=== PATIENT | male | born 1995 | race Caucasian/White ===

== ENCOUNTER 2020-06-20 19:40 | Emergency (ER) | payer BC, SELFPAY ==
[2020-06-20 19:42] VITALS: BP 153/76; PULSE 105; RESP 18; TEMP 36.4; O2SAT 100
--- NOTE | 2020-06-20 19:48 | ED.UPPEXIN ---
HPI - Extremity Injury (Upper) General Chief Complaint: Extremity Injury, Upper Stated Complaint: right hand injury Time Seen by Provider: 06/20/20 19:48 History of Present Illness HPI narrative: 24 yo male presents complaining of hand injury. 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 She sustained 2 laceration to the hand. He has mild pain. Full ROm. No numbness or weakness. Concerned due to difficulty controlling bleeding. Unsure of tetanus status. Related Data Allergies Allergy/AdvReac Type Severity Reaction Status Date / Time No Known Allergies Allergy Unknown Unverified 10/29/18 19:16 Review of Systems Review of Systems: All systems reviewed & are unremarkable except as noted in HPI and below Constitutional: Constitutional: Reports no additional constitutional complaints Cardiovascular: Cardiovascular: Reports no additional cardiovascular complaints Respiratory: Respiratory: Reports no additional respiratory complaints Neurologic: Reports as per HPI [facility] Family History Family History (Updated 01/03/10 @ 08:49 by DOCTOR UNKNOWN) Other Family history of alcoholism Family history of arthritis Hypertension Social History Social History Alcohol intake: never Exam Const: General: healthy appearing, no acute distress and alert Nutritional Appearance: well nourished Orientation/consciousness: patient oriented x3 HENMT: Head: normal to inspection Neck: Neck: normal visual inspection Resp: Effort & Inspection: normal respiratory effort Cardio: Other: 2 + right radial, brisk cap refill Skin: General skin exam: normal color Other: parallel 1.5 cm and 2 cm lacerations to posterior lateral right hand proximal to second MCP Neuro: General: patient oriented x3, moves all extremities and no focal motor deficits Speech: normal speech Extrem: Other: full ROM Course Vital Signs Vital signs: Vital Signs Temperature 36.4 C 06/20/20 19:42 Pulse Rate 105 H 06/20/20 19:42 Respiratory Rate 18 06/20/20 19:42 Blood Pressure 153/76 H 06/20/20 19:42 Pulse Oximetry 100 06/20/20 19:42 Temperature 36.4 C 06/20/20 19:42 Pulse Rate 85 06/20/20 20:40 Respiratory Rate 14 06/20/20 20:40 Blood Pressure 137/77 06/20/20 20:40 Pulse Oximetry 100 06/20/20 20:40 Procedures Laceration Laceration 1: Date: 06/20/20 Time: 20:10 Site: hand Side (If applicable): right Size (cm): 1.5 Description: linear Depth: simple, single layer Local Anesthetic: lidocaine 1% and with epi Amount of anesthesia used (mL): 2 Pre-repair: wound explored, irrigated extensively and minor debridement ====== Skin Level ====== Skin layer closed with: nylon Size (cm): 5-0 Number of sutures: 1 Technique: horizontal mattress ====== Subcutaneous Layer ====== ====== Muscle Layer ====== ====== Tendon Layer ====== Laceration 2: Date: 06/20/20 Time: 20:11 Site: hand Side (If applicable): right Size (cm): 2 Description: linear Depth: simple, single layer Local Anesthetic: lidocaine 1% and with epi Amount of anesthesia used (mL): 1 Pre-repair: wound explored, irrigated extensively and minor debridement ====== Skin Level ====== Skin layer closed with: nylon Size (cm): 5-0 Number of sutures: 2 Technique: horizontal mattress ====== Subcutaneous Layer ====== ====== Muscle Layer ====== ====== Tendon Layer ====== Discharge Plan Discharge Clinical Impression: Laceration of hand Patient Disposition: Home, Self-Care Condition: Stable Instructions: Laceration (ED) Follow-up/Referrals: PHYSICIAN,LEGAL TRANSCRIBER [Primary Care Provider] - Santos Mancera MD [Physician] -
--- NOTE | 2020-06-20 19:59 | PC.NURSE ---
in room w/ pt placing sutures at this time.
[2020-06-20] MEDS: TETANUS,DIPHTHERIA,AC PERTUSSIS ADULT (0.5 ML) BOOSTRIX IM (20:35)
[2020-06-20 20:40] VITALS: BP 137/77; PULSE 85; RESP 14; O2SAT 100
== END 2020-06-20 20:40 | disposition home or self-care (01) ==
PROVIDERS: Emergency Provider Emergency Medicine
DX: S61.411A Laceration without foreign body of right hand, initial encounter (principal); Z23 Encounter for immunization; W31.89XA Contact with other specified machinery, initial encounter
CPT/HCPCS: 12002; 90471; 90715; 99282

== ENCOUNTER 2020-07-02 17:39 | Emergency (ER) | payer BC, SELFPAY ==
--- NOTE | 2020-07-02 17:47 | ED.SKABFB ---
HPI - Skin/Abscess/Foreign Bdy General Chief complaint: Skin/Abscess/Foreign Body Stated complaint: Suture Removal Time Seen by Provider: 07/02/20 17:47 Source: patient and RN notes reviewed History of Present Illness HPI narrative: Patient is a 24-year-old male who presents the urgent care with complaints of needing sutures removed. Patient states that approximately 12 days ago he went to [facility] after a backside grinder blew up in his hand and he cut his right hand . Patient states he feels that some of the sutures of popped . Patient had a 3 sutures placed at the time of injury. No other acute complaints. No acute distress noted. Patient aware of the plan of care. Some parts of this dictation were generated by voice recognition software and may contain typographical and/or grammatical inaccuracies. Related Data Home Medications Medication Instructions Recorded Confirmed cephalexin 500 mg PO BID 07/02/20 07/02/20 Allergies Allergy/AdvReac Type Severity Reaction Status Date / Time No Known Allergies Allergy Unknown Unverified 10/29/18 19:16 Review of Systems Review of Systems: Narrative: CONSTITUTIONAL: Denies fever, chills, or sweats. EYES: Denies visual changes, redness, or discharge. ENT: Denies rhinorrhea, congestion, sore throat, or otalgia. CARDIOVASCULAR: Denies chest pain, palpitations, or edema. RESPIRATORY: Denies cough or dyspnea. GASTROINTESTINAL: Denies abdominal pain, nausea, vomiting, or diarrhea. GENITOURINARY: Denies dysuria or hematuria. SKIN: Reports of needing sutures removed MUSCULOSKELETAL: Denies back pain, joint pain, or myalgia. NEUROLOGIC: Denies headache, numbness, or weakness. All other systems reviewed are negative, except as documented in HPI. [facility] Family History Family History (Updated 01/03/10 @ 08:49 by DOCTOR UNKNOWN) Other Family history of alcoholism Family history of arthritis Hypertension Social History Social History Alcohol intake: never Gender identity (if verbalized by the patient): Male Comments At the time of my signature, I reviewed and agree with the nursing past medical, surgical, social, and family history. There is no relevant family history pertinent to the patient complaint. Exam Narrative: Exam Narrative: GENERAL: This is a well-nourished, well-developed patient, in no apparent distress. HEAD: normocephalic, atraumatic. EYES: PERRL. Sclera clear/white. Vision is grossly intact. EARS: External ears normal NOSE: External nose normal with no obvious nasal discharge, nares without redness, no rhinorrhea. THROAT: Mucous membranes moist NECK: Neck supple SKIN: 1 cm healed approximated laceration noted to the right hand near the MCP of the right index finger with 3 visible sutures NEURO: awake, alert, and oriented to person, place and time. There were no obvious focal neurologic abnormalities. EXTREMITIES: No clubbing, cyanosis, or edema. Course Vital Signs Vital signs: Vital Signs Temperature 100.0 F H 07/02/20 17:56 Pulse Rate 76 07/02/20 17:56 Respiratory Rate 16 07/02/20 17:56 Blood Pressure 124/63 07/02/20 17:56 Pulse Oximetry 99 07/02/20 17:56 Temperature 100.0 F H 07/02/20 17:56 Pulse Rate 76 07/02/20 17:56 Respiratory Rate 16 07/02/20 17:56 Blood Pressure 124/63 07/02/20 17:56 Pulse Oximetry 99 07/02/20 17:56 Reviewed Procedures Other Procedure Procedure 1: Other Procedure: 3 sutures removed from approximated laceration near the MCP of the right index finger. No complications. No signs or symptoms of cellulitis or infection. Procedure successful. Patient tolerated well. MDM - Skin/Abscess/Foreign Bdy MDM Narrative Medical decision making narrative: Advised the patient to keep the approximated wound clean and free of debris. Use plain Dial soap and water to clean the area and cover with a Band-Aid as necessary. May also use antibiotic ointment. Be aware of signs and symptoms of
[2020-07-02 17:56] VITALS: BP 124/63; PULSE 76; RESP 16; TEMP 37.8; O2SAT 99
== END 2020-07-02 17:58 | disposition home or self-care (01) ==
PROVIDERS: Emergency Provider Nurse Practitioner Family; PCP Family Medicine
DX: S61.411D Laceration without foreign body of right hand, subsequent encounter (principal); W45.8XXD Other foreign body or object entering through skin, subsequent encounter
CPT/HCPCS: 99211; G0463